=== PATIENT | male | born 1955 | race Caucasian/White ===

== ENCOUNTER → 2016-03-12 | Outpatient (CLI) | payer OTHER ==
--- NOTE | 2016-03-12 16:18 | DX ---
PA and Lateral Chest Clinical Indications: Shortness of breath R 06.02. Findings: Compare 2015. The lungs are clear, and no masses are found. The heart and pulmonary vesse ls are normal. There are no pleural effusions and no pneumothorax. Multiple bilateral healed rib fr actures are unchanged. Impression: No acute cardiopulmonary features.
== END ==
LOC: FIMAGING 15:40
PROVIDERS: ATTEND Physician Assistant
DX: R06.02 Shortness of breath (principal)

== ENCOUNTER → 2016-06-08 | Outpatient (CLI) | payer OTHER | LOC: CIMAGING 09:21 | PROVIDERS: ATTEND Internal Medicine Cardiovascular Disease | DX: J40 Bronchitis, not specified as acute or chronic (principal); R91.1 Solitary pulmonary nodule; I25.10 Atherosclerotic heart disease of native coronary artery without angina pectoris; Z87.891 Personal history of nicotine dependence | CPT/HCPCS: 71250-PO ==